=== PATIENT | female | born 1940 | race Caucasian/White ===

== ENCOUNTER 2017-05-26 00:01 | Inpatient (IN) ==
[2017-05-26 00:28] LABS: Basophils % 0.5 %; Eosinophils # 0.2 K/mcL (0.0-0.6); Hematocrit 23.3 % (35.3-44.9); Immature Granulocytes % 0.4 % (0-4); Lymphocytes # 2.2 K/mcL (0.6-4.6); Lymphocytes % 26.9 %; Mean Corpuscular Hemoglobin 31.2 pg (28.0-33.3); Mean Corpuscular Volume 94.3 fL (83.0-100.0); Mean Platelet Volume 11.3 fL (9.4-12.4); Monocytes # 0.7 K/mcL (0.0-1.3); Monocytes % 8.9 %; Nucleated Red Blood Cells 0.2 /100 WBC (0); Platelet Count 195 K/mcL (140-400); Red Blood Count 2.47 M/mcL (3.82-4.97); Red Cell Distribution Width 13.2 % (11.5-14.5); Segmented Neutrophils % 61.3 %
[2017-05-26 00:42] LABS: BUN/Creatinine Ratio 63 (6-26); Blood Urea Nitrogen 55 mg/dL (7-20); Calcium 8.3 mg/dL (8.6-10.8); Carbon Dioxide 22 mEq/L (19-29); Chloride 108 mEq/L (98-109); Glucose 109 mg/dL (70-99); Osmolality,Calculated 300 (280-300); Potassium 3.7 mEq/L (3.5-4.5); Sodium 137 mEq/L (136-145); eGFR For African Americans > 60 (> 60); eGFR For Non-African Americans > 60 (> 60)
[2017-05-26 00:44] LABS: Hemoglobin 7.7 g/dL (11.5-15.4)
--- NOTE | 2017-05-26 03:14 | Emergency Department Note ---
Disposition Clinical Impression: Anemia, Weakness, GI bleed Disposition: Admitted As Inpatient Condition: Fair Referrals: Shoshana Eisenberg CNP [Primary Care Provider] - Forms: ED Satisfaction Letter Time of Disposition: 06:13 General Adult HPI - General Chief complaint: ED Shortness of Breath/Dyspnea Stated complaint: SOB, "my blood pressure keeps dropping," Time Seen by Provider: 05/26/17 01:07 Source: patient, family Mode of arrival: private vehicle Limitations: no limitations Nursing Notes Reviewed: Yes Vital Signs Reviewed: Yes - History of Present Illness HPI Narrative: 77-year-old female patient presents to the emergency department with complaint of mild shortness of breath, generalized weakness and "my blood pressure has been low." Patient states that she was seen by her family doctor yesterday and was told to discontinue all of her blood pressure medications except for metoprolol. Patient states that over the course of the last 3 days she is felt generally fatigued, however states that she has not had any fever, chills, nausea or vomiting. She denies any chest pain. She has no additional complaints or concerns. Onset (ago): day(s) (3) Radiation: non-radiation Pain Scale: 0 Consistency: intermittent, Worsening Improves with: nothing Worsens with: nothing Associated symptoms: Reports: shortness of breath Treatments Prior to Arrival: none - Related Data Allergies Allergy/AdvReac Type Severity Reaction Status Date / Time Sulfa (Sulfonamide Allergy Itching Verified 02/19/17 15:46 Antibiotics) morphine AdvReac Vomiting Verified 02/19/17 15:46 All systems ED: reviewed and negative except as stated. Constitutional: Denies: fever, chills Cardiovascular: Denies: chest pain Respiratory: Reports: dyspnea Gastrointestinal: Denies: abdominal pain, nausea, vomiting, diarrhea, constipation, hematemesis, melena, hematochezia Genitourinary: Denies: urgency, dysuria, frequency Musculoskeletal: Denies: back pain, neck pain Integumentary: Denies: rash, abrasion, lesions Neurological: Reports: weakness. Denies: headache Psychiatric: Denies: anxiety, depression, suicidal thoughts, homicidal thoughts Endocrine: Reports: fatigue Past Medical History - Past Medical History Attestation: Yes The following information was validated with the patient. Source: patient, nursing notes reviewed Medical history: Reports: coronary artery disease, thyroid disease Psychiatric history: Reports: no psych history - Social History Smoking Status: Never smoker Smokeless Tobacco Status: No Alcohol use: Reports: none Drug use: Reports: none Physical Exam - General Limitations: no limitations General appearance: alert, in no apparent distress - Head Head exam: atraumatic, normocephalic, normal inspection - Eye Eye exam: Present: normal appearance, PERRL - Neck Neck exam: Present: normal inspection, full ROM, trachea midline - Chest Chest inspection: Present: normal inspection, symmetric chest wall rise - Respiratory Respiratory exam: Present: normal lung sounds bilaterally. Absent: respiratory distress - Cardiovascular Cardiovascular exam: Present: regular rate, normal rhythm, normal heart sounds - Abdominal Exam Abdominal exam: Present: soft, Non-Tender, normal bowel sounds. Absent: distention, guarding, rebound, rigidity - Extremities Exam Extremities exam: Present: normal inspection, full ROM. Absent: tenderness, pedal edema - Back Exam Back exam: Present: normal inspection, full ROM. Absent: tenderness - Neurological Exam Neurological exam: Present: alert, oriented X3 - Psychiatric Psychiatric exam: Present: normal affect, normal mood - Skin Skin exam: Present: warm, dry, intact, normal color Course - Consultations Consultation #1: I discussed the patient's presentation, labs and imaging studies with the hospitalist, he accepts the patient for admission and further workup. Patient resting comfortably in no acute distress. Vital signs within normal limits. Time: 06:13 Vital Signs Temperature 97.4 F L 05/26/17 00:09 Pulse Rate 67 05/26/17 00:09 Respiratory Rate 16 05/26/17 00:09 Blood Pressure 118/70 05/26/17 00:09 O2 Sat by Pulse Oximetry 100 05/26/17 00:09 Temperature 97.4 F L 05/26/17 00:09 Pulse Rate 57 05/26/17 03:00 Respiratory Rate 16 05/26/17 01:19 Blood Pressure 109/58 05/26/17 03:00 O2 Sat by Pulse Oximetry 100 05/26/17 01:19 Oxygen Delivery Oxygen Delivery Room Air Medical Decision Making - Lab Data Lab results reviewed: Yes I reviewed the patient's lab results. Result diagrams: 05/26/17 00:21 05/26/17 00:21 Lab Results 05/26/17 05/26/17 05/26/17 Range/Units 00:21 00:21 00:21 WBC 8.1 (4.3-11.1) K/mcL RBC 2.47 L (3.82-4.97) M/mcL Hgb 7.7 L (11.5-15.4) g/dL Hct 23.3 L (35.3-44.9) % MCV 94.3 (83.0-100.0) fL MCH 31.2 (28.0-33.3) pg MCHC 33.0 (31.6-35.5) g/dL RDW 13.2 (11.5-14.5) % Plt Count 195 (140-400) K/mcL MPV 11.3 (9.4-12.4) fL Immature Gran % 0.4 (0-4) % Seg Neutrophils % 61.3 % Lymphocytes % 26.9 % Monocytes % 8.9 % Eosinophils % 2.0 % Basophils % 0.5 % Neutrophils # 5.0 (1.6-8.9) K/mcL Lymphocytes # 2.2 (0.6-4.6) K/mcL Monocytes # 0.7 (0.0-1.3) K/mcL Eosinophils # 0.2 (0.0-0.6) K/mcL Basophils # 0.0 (0.0-0.2) K/mcL Nucleated RBCs/100 WBC 0.2 H (0) /100 WBC Sodium 137 (136-145) mEq/L Potassium 3.7 (3.5-4.5) mEq/L Chloride 108 (98-109) mEq/L Carbon Dioxide 22 (19-29) mEq/L BUN 55 H (7-20) mg/dL Creatinine 0.87 (0.57-1.11) mg/dL Est GFR ( Amer) > 60 (> 60) Est GFR (Non-Af Amer) > 60 (> 60) BUN/Creatinine Ratio 63 H (6-26) Glucose 109 H (70-99) mg/dL Calculated Osmolality 300 (280-300) Lactic Acid 0.8 (0.5-2.2) mmol/L Calcium 8.3 L (8.6-10.8) mg/dL Troponin I (0-0.03) ng/mL B-Natriuretic Peptide (0-100) pg/mL 05/26/17 05/26/17 Range/Units 00:21 00:21 WBC (4.3-11.1) K/mcL RBC (3.82-4.97) M/mcL Hgb (11.5-15.4) g/dL Hct (35.3-44.9) % MCV (83.0-100.0) fL MCH (28.0-33.3) pg MCHC (31.6-35.5) g/dL RDW (11.5-14.5) % Plt Count (140-400) K/mcL MPV (9.4-12.4) fL Immature Gran % (0-4) % Seg Neutrophils % % Lymphocytes % % Monocytes % % Eosinophils % % Basophils % % Neutrophils # (1.6-8.9) K/mcL Lymphocytes # (0.6-4.6) K/mcL Monocytes # (0.0-1.3) K/mcL Eosinophils # (0.0-0.6) K/mcL Basophils # (0.0-0.2) K/mcL Nucleated RBCs/100 WBC (0) /100 WBC Sodium (136-145) mEq/L Potassium (3.5-4.5) mEq/L Chloride (98-109) mEq/L Carbon Dioxide (19-29) mEq/L BUN (7-20) mg/dL Creatinine (0.57-1.11) mg/dL Est GFR ( Amer) (> 60) Est GFR (Non-Af Amer) (> 60) BUN/Creatinine Ratio (6-26) Glucose (70-99) mg/dL Calculated Osmolality (280-300) Lactic Acid (0.5-2.2) mmol/L Calcium (8.6-10.8) mg/dL Troponin I 0.00 (0-0.03) ng/mL B-Natriuretic Peptide 42 (0-100) pg/mL - Radiology Data Radiology results reviewed: Yes I reviewed the patient's radiology results.
--- NOTE | 2017-05-26 05:01 | Emergency Department Note ---
START Narrative - START START: For this encounter, I have reviewed the SOCIAL MEDIA CAMPAIGN MANAGER or PA documentation, treatment plan, and medical decision making; and I have had face to face time with this patient. 77yo F here for sob. anemia pt to be admitted.
[2017-05-26] MEDS ORDERED: Pantoprazole 40 MG VIAL IVP ONE (05:06)
[2017-05-26] MEDS: Pantoprazole 40 MG in 0.9 % Sodium Chloride Mini Bag 100 ML IVC SCH ×4 (05:38→23:00)
[2017-05-26] MEDS ORDERED: Naloxone 0.4 MG/ML INJ IVP PRN (05:59)
--- NOTE | 2017-05-26 06:10 | Internal Med History&Physical ---
Date of Encounter: 05/26/17 Time of Encounter: 06:07 Assessment and Plan (1) Melena Current visit: Yes Status: Acute on protonix per ED. Consult GI for eval. Clears for now until eval by GI in the a.m. Suspect subacute/slow bleed (2) Symptomatic anemia Current visit: Yes Status: Acute 1 pRBC, Check H&H q 12 (3) CAD (coronary artery disease) of artery bypass graft Current visit: Yes Status: Acute Hold DAPT for now. Stents were placed back in 2005 Qualifiers: Qualified Code(s): I25.810 - Atherosclerosis of coronary artery bypass graft( s) without angina pectoris (4) HTN (hypertension), benign Current visit: Yes Status: Acute hold BP med due to normotensive (5) Hypothyroid Current visit: Yes Status: Acute Qualifiers: Qualified Code(s): E03.9 - Hypothyroidism, unspecified Internal Medicine - H&P: HPI Chief complaint: weakness History of present illness: Ms. Shah is a 77 year old female who presents with 2 days hx of weakness, having headaches and dizziness, NIXON, worse with exertion suspicious for symptomatic anemia. Experienced symptoms between thursday and thursday. In the ED, she was found to have dark stools. She takes daily mobic, ASA and plavix On review, she has a hx of CAD s/p CABG 1993, stent 2005, EKG rate 66, non- specific T wave abnormality, T-wave flattening. 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 [employer] Past Med Surg Social Fam HX - Past Medical History Medical history: coronary artery disease, thyroid disease Psychiatric history: no psych history - Past Surgical History Surgical History: coronary bypass (CABG) - Social History Smoking Status: Never smoker Smokeless Tobacco Status: No Alcohol use: none Drug use: none - Additional Family History Additional family history: Hypertension Internal Medicine - H&P: Meds Allergies Sulfa (Sulfonamide Antibiotics) Allergy (Verified 02/19/17 15:46) Itching morphine Adverse Reaction (Verified 02/19/17 15:46) Vomiting All Systems PM: A 10-system review of systems was performed and is negative for pertinent findings except as documented above in the HPI. Review of systems: Inserted review of systems - Constitutional Vitals: Temp Pulse Resp BP Pulse Ox 97.4 F L 60 16 114/65 100 05/26/17 00:09 05/26/17 05:00 05/26/17 01:19 05/26/17 05:00 05/26/17 05:00 Exam: General - AAO x 3 Psych - Appropriate affect/speech. No agitation Eyes - TAMARA. Eye lids intact. No scleral icterus ENT - Oral mucosa pink, dentition intact. External ear clear/dry/intact. No thyromegaly Lymphatics - No cervical/inguinal lympadenopathy Neuro - No gross peripheral or central neuro deficits with intact CN 2-12 exam Heart - Sinus. RRR. S1 and S2 present. No added HS/murmurs appreciated. No elevated JVD appreciated. No calf swellings/erythema Lung - Adequate air entry b/l, No crackes/wheezes appreciated GI - Soft, non-tender. No hepatosplenomegaly/ascities. BS+ - No CVA/suprapubic tenderness or palpable bladder distension Skin - Intact. No rash/petechiae/ecchymosis. Warm extremities MSK - Joints with normal ROM. No joint swellings Internal Med - H&P Results - Labs CBC & Chem 7: 05/26/17 00:21 05/26/17 00:21 Labs: Short CBC 05/26/17 Range/Units 00:21 WBC 8.1 (4.3-11.1) K/mcL Hgb 7.7 L (11.5-15.4) g/dL Hct 23.3 L (35.3-44.9) % Plt Count 195 (140-400) K/mcL Neutrophils # 5.0 (1.6-8.9) K/mcL BMP 05/26/17 00:21 Sodium 137 Potassium 3.7 Chloride 108 Carbon Dioxide 22 BUN 55 H Creatinine 0.87 Glucose 109 H Calcium 8.3 L Cardiac Enzymes 05/26/17 Range/Units 00:21 Troponin I 0.00 (0-0.03) ng/mL - Impressions ITS Impressions Chest X-Ray 05/26/17 00:11 IMPRESSION: No acute cardiopulmonary process. D/ / Jaxson Pugh MD / Jaxsno Pugh MD Interpreting Provider: Jaxson Pugh MD
[2017-05-26 08:38] LABS: Hematocrit 22.3 % (35.3-44.9); Hemoglobin 7.4 g/dL (11.5-15.4)
--- NOTE | 2017-05-26 08:58 | Gastroenterology Consult Note ---
<Kennedi Cat - Last Filed: 05/26/17 11:29> Date of Encounter: 05/26/17 Time of Encounter: 10:20 - Assessment and plan (1) Melena Current Visit: Yes Status: Acute Assessment and plan: EGD to r/o esophagitis, gastritis, duodenitis, PUD, MW tear, varices, tumor, polyp, AVM. Continue PPI gtt. HOLD anticoagulation (2) Anemia Current Visit: Yes Status: Acute Qualifiers: Anemia type: other cause Other causes of anemia: acute posthemorrhagic Qualified Code(s): D62 - Acute posthemorrhagic anemia - Time Spent With Patient Total time spent is greater than 50% in coordination of care (as documented) at patient's floor/unit and/or counseling patient: less than 15 minutes GI History of Present Illness - Data of Consult Patient: new to practice Consult date: 05/26/17 Requesting Physician: Alirio Kitchen MD - Consult Narrative Reason for consult: melena, anemia History of present illness: Ms. Shah is a 77 year old female with PMH of CAD s/p CABG 1993, cardiac stent 2005 who presents with 2 days hx of weakness, having headaches and dizziness, NIXON, worse with exertion suspicious for symptomatic anemia. Experienced symptoms between thursday and thursday. In the ED, she was found to have dark stools. She takes daily mobic, ASA and plavix. Last Cscope [address] Lares revealed diverticulosis and internal hemorrhoids. Some increase in heartburn, admits dysphagia occasionally but due to pre-existing goiter. BM daily under normal circumstances. Colonoscopy: 2012 - VV - diverticulosis, IH EGD: None noted Past Med Surg Social Fam HX - Past Medical History Medical history: coronary artery disease, thyroid disease Psychiatric history: no psych history - Past Surgical History Surgical History: coronary bypass (CABG) - Social History Smoking Status: Never smoker Smokeless Tobacco Status: No Alcohol use: none Drug use: none - Gastrointestinal NSAID use: mobic, asa Anticoagulation Use: Plavix Number of BM Per Day: daily Gastrointestinal: Present: heartburn, melena - Constitutional Constitutional: fatigue - EENT Eyes: as per HPI Ears: Present: as per HPI Nose, mouth and throat: Present: dysphagia - Cardiovascular Cardiovascular ROS: Present: as per HPI - Respiratory Respiratory IM: Present: dyspnea - Neurological ROS Neurological GI: Present: weakness - Hematologic/Lymphatic Hematologic/Lymphatic pediatric: Present: as per HPI - Musculoskeletal Musculoskeletal ROS GI: Present: as per HPI - Integumentary Integumentary GI: Present: as per HPI - Psychiatric ROS Psychiatric GI: Present: as per HPI - Endocrine Endocrine IM: Present: as per HPI - Constitutional Vitals: Temp Pulse Resp BP Pulse Ox 97.4 F L 60 14 115/63 100 05/26/17 00:09 05/26/17 05:00 05/26/17 06:32 05/26/17 06:32 05/26/17 08:34 General appearance: Present: cooperative, A&O X 3, no acute distress, answers questions appropriately - Head Head exam: Present: atraumatic, normocephalic - Eye Eye exam: Present: normal appearance, sclera anicteric - ENT ENT exam: Present: mucous membranes moist - Neck Neck exam general surgery: Present: normal inspection, trachea midline - Respiratory Respiratory exam: Present: CTAB - Cardiovascular Cardiovascular exam: Present: RRR, +S1, +S2 - GI/Abdominal GI/Abdominal exam: Present: normal bowel sounds, soft, no peritoneal signs - Rectal Rectal exam: Present: deferred - Extremities Exam Extremities exam: Present: warm - Neurological Exam Neurological exam: Present: no focal deficits - Psychiatric Psychiatric exam: Present: normal affect, normal mood - Skin Skin exam: Present: dry, intact, normal color, warm Results - Labs CBC & Chem 7: 05/26/17 08:02 05/26/17 00:21 Labs: Last Result Calcium 8.3 mg/dL (8.6-10.8) L 05/26/17 00:21 Troponin I 0.00 ng/mL (0-0.03) 05/26/17 00:21 Stool Occult Blood Negative (Negative) 05/26/17 04:37 Entire Visit Hgb 7.4 g/dL (11.5-15.4) L 05/26/17 08:02 Hct 22.3 % (35.3-44.9) L 05/26/17 08:02 Consult Discharge Plan - Plan Referrals: Shoshana Eisenberg CNP [Primary Care Provider] - 06/04/17 1:00 pm () Frantz Diaz CNP [Advanced Practice Nurse] - (SENT WEB REQUEST ON 05-26-17 @ [id number]) <Eden Peña - Last Filed: 05/26/17 16:44> Date of Encounter: 05/26/17 Time of Encounter: 14:20 - Time Spent With Patient Total time spent is greater than 50% in coordination of care (as documented) at patient's floor/unit and/or counseling patient: GI History of Present Illness - Data of Consult Requesting Physician: Alirio Kitchen MD - Consult Narrative History of present illness: Ms. Shah is a 77 year old female - Constitutional Vitals: Temp Pulse Resp BP Pulse Ox 97.3 F L 62 15 127/83 99 05/26/17 15:28 05/26/17 15:28 05/26/17 15:28 05/26/17 15:28 05/26/17 15:28 Results - Labs CBC & Chem 7: 05/26/17 12:03 05/26/17 00:21 Labs: Last Result Calcium 8.3 mg/dL (8.6-10.8) L 05/26/17 00:21 Troponin I 0.00 ng/mL (0-0.03) 05/26/17 00:21 Stool Occult Blood Negative (Negative) 05/26/17 04:37 Entire Visit Hgb 6.8 g/dL (11.5-15.4) L 05/26/17 12:03 Hct 20.2 % (35.3-44.9) L 05/26/17 12:03 - Attending Attestation I examined this patient and my medical decision-making was reviewed with the Resident Physician. I agree with the documented findings, disposition and treatment plan as described except to the extent set forth below.
[2017-05-26] MEDS ORDERED: 0.9 % Sodium Chloride 250 ML ONE (10:58)
[2017-05-26 12:22] LABS: Hematocrit 20.2 % (35.3-44.9); Hemoglobin 6.8 g/dL (11.5-15.4)
--- NOTE | 2017-05-26 13:46 | Anesthesia Evaluation PreOp ---
Date of Encounter: 05/26/17 Time of Encounter: 13:43 - Past History Planned Operation: EGD Cardiac History: HTN, Cardiac Surgery (1993), Cardiac Stent (2005), Other ( Anemia) Pulmonary History: Denies Any Significant HX POWER TRANSFORMER ASSEMBLER History: Denies Any Significant HX Other Medical History: Thyroid (Hypothyroid with goiter) Anesthesia History: No Prior Anesthetic Complications, Past Anesthesia (CABG, NICO, APPY, L. knee scope, tublal, D&C) : No Alcohol Use: none Drug use: none Medications and Allergies Alendronate Sodium [Fosamax] 70 mg PO QWEEK 05/26/17 [History] Amlodipine Besylate 10 mg PO DAILY 05/26/17 [History] Atorvastatin [Lipitor] 40 mg PO HS 05/26/17 [History] Calcium Carbonate [Calcium] 500 mg PO BID 05/26/17 [History] Clopidogrel [Plavix] 75 mg PO DAILY 05/26/17 [History] Isosorbide MONOnitrate (24 HR) [Imdur] 90 mg PO DAILY 05/26/17 [History] Levothyroxine [Synthroid] 88 mcg PO 0630 05/26/17 [History] Lisinopril [Zestril] 40 mg PO DAILY 05/26/17 [History] Meloxicam [Mobic] 15 mg PO DAILY 05/26/17 [History] Metoprolol [Lopressor] 50 mg PO BID 05/26/17 [History] Montelukast [Singulair] 10 mg PO DAILY 05/26/17 [History] Nitroglycerin [Nitrostat] 0.4 mg SL AD PRN 05/26/17 [History] Potassium Chloride [K-Tab ER] 24 meq PO BID 05/26/17 [History] Ranolazine [Ranexa] 1,000 mg PO DAILY 05/26/17 [History] hydroCHLOROthiazide [Hydrochlorothiazide] 25 mg PO DAILY 05/26/17 [History] Allergies Sulfa (Sulfonamide Antibiotics) Allergy (Verified 02/19/17 15:46) Itching morphine Adverse Reaction (Verified 02/19/17 15:46) Vomiting - Meds/Allergy Pre-op Review Medications Reviewed: Yes Allergies Reviewed: Yes Beta Blockers on Current Med List: No Anesthesia Results - Labs 05/26/17 12:03 05/26/17 00:21 - Imaging EKG: report reviewed (Rate 66, non-specific T wave changes, T-wave flattening) Anesthesia Exam O2 Sat Height 1.57 m Weight 47.9 kg Weight 47.174 kg O2 Sat by Pulse Oximetry 100 O2 Sat by Pulse Oximetry 100 O2 Sat by Pulse Oximetry 98 O2 Sat by Pulse Oximetry 100 O2 Sat by Pulse Oximetry 100 O2 Sat by Pulse Oximetry 100 O2 Sat by Pulse Oximetry 100 O2 Sat by Pulse Oximetry 100 Vital Signs Temp Pulse Resp BP Pulse Ox 97.4 F L 67 16 118/70 100 05/26/17 00:09 05/26/17 00:09 05/26/17 00:09 05/26/17 00:09 05/26/17 00:09 Vital Signs/O2 Sat, Most Current Temp Pulse Resp BP Pulse Ox 98.2 F 60 16 121/62 100 05/26/17 10:55 05/26/17 10:55 05/26/17 10:55 05/26/17 10:55 05/26/17 10:55 Height: 5'2'' Weight: 105# NPO (# of Hours): > 8 hrs Pain Scale: 0 Pain Scale Used: Numeric (1 - 10) - HEENT Pupil (Motor): Pupils equal, EOMI Mallampati: III Teeth: Normal Oral Opening: Greater than 3 - POWER TRANSFORMER ASSEMBLER LOC: Oriented POWER TRANSFORMER ASSEMBLER Motor: Normal RUE, Normal LUE, Normal RLE, Normal LLE, Normal Face POWER TRANSFORMER ASSEMBLER Sensory: Normal: RUE, LUE, RLE, LLE, Face - Cardiac Rhythm: Regular Murmur: None JVD: No Carotid Bruit: No - Pulmonary Breath Sounds: bilateral Clear Respiratory Effort: Symmetrical Anesthesia Assess/Plan ASA Score: 3 Modified [place] Scale for Level of Consciousness: Cooperative, oriented, and tranquil Anesthetic Plan: MAC Autologous Blood: Yes Monitoring Plan: Standard Monitors Recovery Plan: Other
[2017-05-26] MEDS ORDERED: Tetracaine/Benzocaine/Butamben 200MG/SPRAY (100SPY/BOT) MM ONE (14:31)
--- NOTE | 2017-05-26 16:38 | Electrocardiograph Report ---
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
[2017-05-26] MEDS ORDERED: 0.9 % Sodium Chloride 1,000 ML ONE (18:00)
--- NOTE | 2017-05-26 18:01 | Internal Med Progress Note ---
Date of Encounter: 05/26/17 Time of Encounter: 10:00 - Assessment and plan (1) GI bleed Current Visit: Yes Status: Acute Assessment and plan: mostly upper GI bleed with melena cont close monitoring Hb / Hct NPO for now scheduled for EGD in AM by Dr. Peña cont PPI gtt d/c ASA, Plavix and NSAIDs Qualifiers: Qualified Code(s): K92.2 - Gastrointestinal hemorrhage, unspecified (2) Symptomatic anemia Current Visit: Yes Status: Acute Assessment and plan: Since hb dropped down to 6.8.. with known cardiac history will transfuse 2 U PRBC will check Iron levels too cont close monitoring Hb (3) CAD (coronary artery disease) of artery bypass graft Current Visit: Yes Status: Acute Assessment and plan: stable hald ASA and Plavix resumed other meds Qualifiers: Qualified Code(s): I25.810 - Atherosclerosis of coronary artery bypass graft( s) without angina pectoris (4) HTN (hypertension), benign Current Visit: Yes Status: Acute Assessment and plan: stable with current meds (5) Hypothyroid Current Visit: Yes Status: Acute Assessment and plan: on levothyroxine Qualifiers: Qualified Code(s): E03.9 - Hypothyroidism, unspecified - Subjective Interval history: Ms. Shah is a 77 year old female who presents with 2 days hx of weakness, having headaches and dizziness, NIXON, worse with exertion suspicious for symptomatic anemia. Experienced symptoms between thursday and thursday. In the ED, she was found to have dark stools. She takes daily mobic, ASA and plavix. Pt stated she did not have any more dark colored stools after coming to the floor here. Denied any CP / SOB - Constitutional Vitals: Temp Pulse Resp BP Pulse Ox 99.1 F 63 14 133/86 100 05/26/17 17:17 05/26/17 17:17 05/26/17 17:17 05/26/17 17:17 05/26/17 17:17 General appearance: Present: A&O X 3, no acute distress - Head Head exam: Present: atraumatic, normal inspection - Neck Neck exam general surgery: Present: supple. Absent: lymphadenopathy - Respiratory Respiratory exam: Present: CTAB. Absent: accessory muscle use, rales, rhonchi, wheezes - Cardiovascular Cardiovascular exam: Present: RRR, +S1, +S2. Absent: diastolic murmur, gallop, rubs, systolic murmur - GI/Abdominal GI/Abdominal exam: Present: normal bowel sounds, soft, no peritoneal signs. Absent: distended, tenderness - Extremities Exam Extremities exam: Absent: calf tenderness, pedal edema, tenderness - Psychiatric Psychiatric exam: Present: normal affect, normal mood Internal Medicine: Result - Labs CBC & Chem 7: 05/26/17 12:03 05/26/17 00:21 Labs: Short CBC 05/26/17 Range/Units 12:03 Hgb 6.8 L (11.5-15.4) g/dL Hct 20.2 L (35.3-44.9) % Consult Discharge Plan - Plan Referrals: Shoshana Eisenberg CNP [Primary Care Provider] - 06/04/17 1:00 pm () Frantz Diaz CNP [Advanced Practice Nurse] - (SENT WEB REQUEST ON 05-26-17 @ [id number])
[2017-05-26] MEDS: 0.9 % Sodium Chloride 1,000 ML IVC SCH (18:07)
[2017-05-26 18:08] LABS: Hemoglobin 9.1 g/dL (11.5-15.4)
[2017-05-27] MEDS: Pantoprazole 40 MG in 0.9 % Sodium Chloride Mini Bag 100 ML IVC SCH ×2 (04:36→09:20)
[2017-05-27] MEDS: 0.9 % Sodium Chloride 1,000 ML IVC SCH (04:37)
[2017-05-27 05:29] LABS: Basophils % 0.2 %; Eosinophils # 0.3 K/mcL (0.0-0.6); Hemoglobin 7.7 g/dL (11.5-15.4); Immature Granulocytes % 0.2 % (0-4); Lymphocytes # 1.5 K/mcL (0.6-4.6); Lymphocytes % 17.5 %; Mean Corpuscular HGB Conc 33.5 g/dL (31.6-35.5); Mean Corpuscular Hemoglobin 30.7 pg (28.0-33.3); Mean Corpuscular Volume 91.6 fL (83.0-100.0); Monocytes # 0.7 K/mcL (0.0-1.3); Monocytes % 8.1 %; Neutrophils # 6.2 K/mcL (1.6-8.9); Platelet Count 116 K/mcL (140-400); Red Blood Count 2.51 M/mcL (3.82-4.97)
[2017-05-27 05:47] LABS: % Iron Saturation 11 % (15-50); BUN/Creatinine Ratio 26 (6-26); Blood Urea Nitrogen 18 mg/dL (7-20); Calcium 7.6 mg/dL (8.6-10.8); Carbon Dioxide 20 mEq/L (19-29); Chloride 111 mEq/L (98-109); Glucose 92 mg/dL (70-99); Iron 36 mcg/dL (50-170); Osmolality,Calculated 288 (280-300); Potassium 3.5 mEq/L (3.5-4.5); Sodium 138 mEq/L (136-145); Transferrin 240 mg/dL (180-382); eGFR For African Americans > 60 (> 60); eGFR For Non-African Americans > 60 (> 60)
[2017-05-27] MEDS ORDERED: Sucralfate 1 GM TABLET PO SCH (12:15)
[2017-05-27 13:20] LABS: Hematocrit 25.2 % (35.3-44.9); Hemoglobin 8.3 g/dL (11.5-15.4)
[2017-05-27 16:32] VITALS: BP 144/67
--- NOTE | 2017-05-27 16:32 | Discharge Summary ---
Date of Encounter: 05/27/17 Time of Encounter: 12:30 - Discharge Diagnosis (1) GI bleed Priority: Primary Status: Acute Comments: Improved. s/p EGD showed - non bleeding gastric ulcers Qualifiers: Qualified Code(s): K92.2 - Gastrointestinal hemorrhage, unspecified (2) Symptomatic anemia Priority: Primary Status: Acute (3) Gastric ulcer Priority: Secondary Status: Acute Qualifiers: Qualified Code(s): K25.9 - Gastric ulcer, unspecified as acute or chronic, without hemorrhage or perforation (4) CAD (coronary artery disease) of artery bypass graft Priority: Secondary Status: Acute Qualifiers: Qualified Code(s): I25.810 - Atherosclerosis of coronary artery bypass graft( s) without angina pectoris (5) HTN (hypertension), benign Priority: Secondary Status: Acute (6) Hypothyroid Priority: Secondary Status: Acute Qualifiers: Qualified Code(s): E03.9 - Hypothyroidism, unspecified - Discharge Medications Prescriptions: Omeprazole [PriLOSEC] 20 mg PO BIDAC #60 Sucralfate [Carafate] 1 gm PO QIDAC #120 tab Home Medications: Alendronate Sodium [Fosamax] 70 mg PO QWEEK 05/26/17 [History] Amlodipine Besylate 10 mg PO DAILY 05/26/17 [History] Atorvastatin [Lipitor] 40 mg PO HS 05/26/17 [History] Calcium Carbonate [Calcium] 500 mg PO BID 05/26/17 [History] Isosorbide MONOnitrate (24 HR) [Imdur] 90 mg PO DAILY 05/26/17 [History] Levothyroxine [Synthroid] 88 mcg PO 0630 05/26/17 [History] Lisinopril [Zestril] 40 mg PO DAILY 05/26/17 [History] Metoprolol [Lopressor] 50 mg PO BID 05/26/17 [History] Montelukast [Singulair] 10 mg PO DAILY 05/26/17 [History] Nitroglycerin [Nitrostat] 0.4 mg SL AD PRN 05/26/17 [History] Potassium Chloride [K-Tab ER] 24 meq PO BID 05/26/17 [History] Ranolazine [Ranexa] 1,000 mg PO DAILY 05/26/17 [History] hydroCHLOROthiazide [Hydrochlorothiazide] 25 mg PO DAILY 05/26/17 [History] Omeprazole [PriLOSEC] 20 mg PO BIDAC #60 05/27/17 [Rx] Sucralfate [Carafate] 1 gm PO QIDAC #120 tab 05/27/17 [Rx] Aspirin Enteric Coated [Aspirin EC] 81 mg PO DAILY #30 tablet. 06/01/17 [Rx] Allergies/Adverse Reactions: Allergies Sulfa (Sulfonamide Antibiotics) Allergy (Verified 02/19/17 15:46) Itching morphine Adverse Reaction (Verified 02/19/17 15:46) Vomiting Date of admission: 05/26/17 08:21 Primary care physician: Shoshana Eisenberg, Consults: GI Dr. Peña - Patient Status Disposition: Home, Self-Care Condition: Good Overall status at discharge: patient is back to baseline - Discharge Instructions Follow Up With: Shoshana Eisenberg, BETY [Primary Care Provider] - 06/04/17 1:00 pm () Frantz Diaz, GRID MOLDER [Advanced Practice Nurse] - (SENT WEB REQUEST ON 05-26-17 @ [id number]) Additional Instructions: need to f/u with GI Dr. Peña in 1-2 weeks start taking ASA 81mg from 06/01/17 Do not take Plavix until you see your appeals officer -may be you may not need this anymore discontinue Mobic - Diet and Activity Activity: increase activity as tolerated Diet: advance to your usual diet Hospital course: Ms. Shah is a 77 year old female who presents with 2 days hx of weakness, having headaches and dizziness, [place], worse with exertion suspicious for symptomatic anemia. Experienced symptoms between thursday and thursday. In the ED, she was found to have dark stools. She takes daily Mobic, ASA and plavix. Pt stated she did not have any more dark colored stools after coming to the floor here. Started her on Protonix gtt and held her anti platelets medications and Mobic. She did go for EGD y/d by Dr. Peña which showed a small nodule in the Esophagus - Biopsied and 2 small non bleeding gastric ulcers. At this point we switched her to PO Prilosec 20mg BID + Carafate 1gm ACHS. Recommend to keep holding Plavix until she sees her appeals officer, but she can take ASA in 5 days from now. - Time Spent with Patient Total time spent providing and/or coordinating discharge services: - Constitutional Vitals: Temp Pulse Resp BP Pulse Ox 98.6 F 89 16 124/54 99 05/27/17 10:26 05/27/17 13:00 05/27/17 10:26 05/27/17 10:26 05/27/17 10:26 General appearance: Present: A&O X 3, no acute distress - Head Head exam: Present: atraumatic, normal inspection - Neck Neck exam general surgery: Present: supple. Absent: tenderness - Respiratory Respiratory exam: Present: decreased breath sounds. Absent: respiratory distress, rhonchi, wheezes - Cardiovascular Cardiovascular exam: Present: RRR, +S1, +S2. Absent: systolic murmur - GI/Abdominal GI/Abdominal exam: Present: normal bowel sounds, soft, no peritoneal signs. Absent: distended, tenderness - Extremities Exam Extremities exam: Absent: calf tenderness, pedal edema, tenderness
[2017-05-27] MEDS ORDERED: *HR* Propofol 200 MG/20 ML VIAL IVP ONE (17:28)
== END 2017-05-27 17:29 | disposition home or self-care (01) | DRG 378 ==
LOC: 2NNU 00:01 → EMEROO 00:01 → 2NNU 07:34
PROVIDERS: ADMIT Internal Medicine; ATTEND Internal Medicine
PROC: ENDOEBX (2017-05-26 14:00)

== ENCOUNTER 2021-11-05 16:27 | Inpatient (IN) ==
[~2021-11-05 16:27] MED LIST: cefTRIAXone 1,000 MG in 0.9 % Sodium Chloride Mini Bag 100 ML IVPB SCH
[2021-11-05] MEDS ORDERED: 0.9 % Sodium Chloride 1,000 ML IVC ONE (18:48)
[2021-11-05 19:23] LABS: Basophils % 0.2 %; Eosinophils # 0.3 K/mcL (0.0-0.6); Eosinophils % 1.3 %; Hematocrit 41.3 % (35.3-44.9); Hemoglobin 13.2 g/dL (11.5-15.4); Immature Granulocytes % 0.9 % (0-4); Lymphocytes # 0.4 K/mcL (0.6-4.6); Lymphocytes % 2.3 %; Mean Corpuscular Hemoglobin 29.3 pg (28.0-33.3); Mean Corpuscular Volume 91.6 fL (83.0-100.0); Mean Platelet Volume 10.6 fL (9.4-12.4); Monocytes % 5.2 %; Neutrophils # 16.7 K/mcL (1.6-8.9); Platelet Count 180 K/mcL (140-400); Red Blood Count 4.51 M/mcL (3.82-4.97); Red Cell Distribution Width 14.6 % (11.5-14.5); Segmented Neutrophils % 90.1 %; White Blood Count 18.6 K/mcL (4.3-11.1)
[2021-11-05 19:39] LABS: Alanine Aminotransferase 12 Units/L (7-52); Albumin 2.6 g/dL (3.5-5.7); Albumin/Globulin Ratio 0.7 (1.1-2.2); Alkaline Phosphatase 143 Units/L (34-104); Aspartate Amino Transferase 14 Units/L (13-39); BUN/Creatinine Ratio 30 (6-26); Bilirubin,Total 2.1 mg/dL (0.3-1.0); Blood Urea Nitrogen 28 mg/dL (8-23); Calcium 8.3 mg/dL (8.6-10.3); Carbon Dioxide 31 mEq/L (23-29); Chloride 95 mEq/L (98-107); Creatine Kinase 108 Units/L (30-223); Globulin 3.9 g/dL (2.4-3.5); Glucose 179 mg/dL (70-105); Magnesium 1.4 mg/dL (1.6-2.6); Osmolality,Calculated 296 (280-300); Potassium 2.6 mEq/L (3.5-5.1); Sodium 138 mEq/L (136-145); Total Protein 6.5 g/dL (6.4-8.9); eGFR For African Americans > 60 (> 60); eGFR For Non-African Americans 58 (> 60)
[2021-11-05 19:44] LABS: Troponin I 0.26 ng/mL (< 0.04)
[2021-11-05] MEDS ORDERED: levoFLOXacin 750 MG/150 ML 750 MG/150 ML BAG IVPB ONE (20:06)
[2021-11-05 20:12] LABS: Bilirubin,Urine Small (Negative); Blood,Urine Negative (Negative); Clarity,Urine Turbid (Clear); Color,Urine Dark-Yellow (Yellow); Glucose,Urine (UA) Normal (Normal); Hyaline Casts,Urine Few per lpf (None Seen); Ketones,Urine Trace mg/dL (Negative); Leukocyte Esterase,Urine Negative (Negative); Mucus,Urine Many per lpf (None-Few); Nitrite,Urine Negative (Negative); PH,Urine 5.5 pH Units (5.0-8.0); Protein,Urine 50 mg/dL (Neg-Trace); Specific Gravity,Urine 1.029 (1.010-1.025); Squamous Epithelial Cell,Urine Few per hpf (None-Few); Urobilinogen,Urine >=8.0 mg/dL (Normal)
[2021-11-05] MEDS ORDERED: *HR* Heparin 5,000 UNIT/ML VIAL IVP ONE (20:26)
[2021-11-05] MEDS ORDERED: *HR* Heparin 5,000 UNIT/ML VIAL IVP PRN ×2 (20:26)
[2021-11-05] MEDS ORDERED: Naloxone 0.4 MG/ML INJ IVP PRN (20:34)
[2021-11-05] MEDS ORDERED: Ondansetron 4 MG/2 ML VIAL IVP PRN (20:34)
[2021-11-05] MEDS ORDERED: 0.9 % Sodium Chloride 1,000 ML IVC SCH (21:00)
[2021-11-05] MEDS ORDERED: Nitroglycerin 0.4 MG TAB.SUBL SL PRN (21:23)
[2021-11-05] MEDS ORDERED: Magnesium Sulfate 1 GM/102 ML PIGGYBACK IVPB ONE (21:36)
[2021-11-05] MEDS: Heparin 25,000UNIT/250ML 1/2NS 25,000 UNIT/250 ML IV.SOLN IVC SCH (21:56)
[2021-11-05 23:35] LABS: Hematocrit 37.8 % (35.3-44.9); Hemoglobin 12.3 g/dL (11.5-15.4); Mean Corpuscular HGB Conc 32.5 g/dL (31.6-35.5); Mean Corpuscular Volume 92.2 fL (83.0-100.0); Mean Platelet Volume 10.8 fL (9.4-12.4); Platelet Count 119 K/mcL (140-400); Red Cell Distribution Width 14.6 % (11.5-14.5); White Blood Count 14.4 K/mcL (4.3-11.1)
[2021-11-05 23:45] LABS: Heparin anti-factor XA UFH 0.6 IU/mL (0.30-0.70)
[2021-11-05 23:46] LABS: INR 1.5; Prothrombin Time 16.5 Seconds (9.4-12.1)
[2021-11-06] MEDS: Acetaminophen 325 MG TABLET PO PRN (00:01)
[2021-11-06 01:53] LABS: Adenovirus Not Detected (Not Detect); Bordetella Pertussis Not Detected (Not Detect); Chlamydophila pneumoniae Not Detected (Not Detect); Coronavirus 229E Not Detected (Not Detect); Coronavirus HKU1 Not Detected (Not Detect); Coronavirus NL63 Not Detected (Not Detect); Coronavirus OC43 Not Detected (Not Detect); Human Metapneumovirus Not Detected (Not Detect); Human Rhinovirus/Enterovirus Not Detected (Not Detect); Influenza A Subtype 2009 H1 Not Detected (Not Detect); Influenza B Not Detected (Not Detect); Mycoplasma pneumoniae Not Detected (Not Detect); Parainfluenza Virus 1 Not Detected (Not Detect); Parainfluenza Virus 2 Not Detected (Not Detect); Parainfluenza Virus 3 Not Detected (Not Detect); Parainfluenza Virus 4 Not Detected (Not Detect); Respiratory Syncytial Virus Not Detected (Not Detect); SARS-CoV-2 Not Detected (Not Detect)
[2021-11-06 05:21] LABS: Hematocrit 33.8 % (35.3-44.9); Mean Corpuscular HGB Conc 32.5 g/dL (31.6-35.5); Mean Corpuscular Hemoglobin 30.2 pg (28.0-33.3); Mean Corpuscular Volume 92.9 fL (83.0-100.0); Mean Platelet Volume 10.7 fL (9.4-12.4); Platelet Count 117 K/mcL (140-400); Red Blood Count 3.64 M/mcL (3.82-4.97); Red Cell Distribution Width 14.5 % (11.5-14.5)
[2021-11-06 05:40] LABS: Potassium 3.5 mEq/L (3.5-5.1)
[2021-11-06 05:41] LABS: BUN/Creatinine Ratio 38 (6-26); Blood Urea Nitrogen 26 mg/dL (8-23); Calcium 7.2 mg/dL (8.6-10.3); Carbon Dioxide 28 mEq/L (23-29); Chloride 102 mEq/L (98-107); Glucose 83 mg/dL (70-105); Osmolality,Calculated 288 (280-300); Sodium 137 mEq/L (136-145); eGFR For African Americans > 60 (> 60); eGFR For Non-African Americans > 60 (> 60)
[2021-11-06] MEDS ORDERED: Dextrose Gel 15 GM/37.5 ML TUBE PO PRN ×2 (07:53)
[2021-11-06] MEDS ORDERED: D5% in Water 1,000 ML IVC PRN (07:53)
[2021-11-06] MEDS ORDERED: cefTRIAXone 1,000 MG in 0.9 % Sodium Chloride Mini Bag 100 ML IVPB SCH (09:00)
[2021-11-06] MEDS ORDERED: Azithromycin 500 MG in 0.9 % Sodium Chloride 250 ML IVPB SCH (09:00)
[2021-11-06] MEDS ORDERED: Perflutren Lipid Microsphere 1.3 ML in 0.9 % Sodium Chloride 8.7 ML IVP PRN (09:01)
[2021-11-06] MEDS ORDERED: Isovue-370 500 ML BOTTLE IVP ONE (11:00)
[2021-11-06] MEDS: Insulin LISPRO 300 UNITS/3 ML VIAL SUBQ SCH ×2 (12:18→19:47)
[2021-11-06] MEDS: *HR* Dextrose 50 % in Water (Syg) 50 ML SYRINGE IVP PRN (14:10)
[2021-11-06] MEDS ORDERED: 0.9 % Sodium Chloride 1,000 ML IVC SCH (14:30)
[2021-11-06 14:50] LABS: Triiodothyronine (T3) Total 18 ng/dL (87-178)
[2021-11-07] MEDS: Insulin LISPRO 300 UNITS/3 ML VIAL SUBQ SCH ×4 (02:54→17:56)
[2021-11-07 03:20] LABS: Basophils % 0.2 %; Eosinophils # 0.7 K/mcL (0.0-0.6); Eosinophils % 4.3 %; Hematocrit 37.5 % (35.3-44.9); Hemoglobin 11.9 g/dL (11.5-15.4); Lymphocytes # 0.4 K/mcL (0.6-4.6); Lymphocytes % 2.6 %; Mean Corpuscular HGB Conc 31.7 g/dL (31.6-35.5); Mean Corpuscular Hemoglobin 30.4 pg (28.0-33.3); Mean Corpuscular Volume 95.7 fL (83.0-100.0); Mean Platelet Volume 11.1 fL (9.4-12.4); Monocytes # 0.7 K/mcL (0.0-1.3); Monocytes % 4.5 %; Neutrophils # 14.4 K/mcL (1.6-8.9); Platelet Count 149 K/mcL (140-400); Red Blood Count 3.92 M/mcL (3.82-4.97); Red Cell Distribution Width 15.1 % (11.5-14.5); Segmented Neutrophils % 87.4 %; White Blood Count 16.4 K/mcL (4.3-11.1)
[2021-11-07 03:38] LABS: BUN/Creatinine Ratio 26 (6-26); Blood Urea Nitrogen 22 mg/dL (8-23); Calcium 7.3 mg/dL (8.6-10.3); Carbon Dioxide 24 mEq/L (23-29); Chloride 106 mEq/L (98-107); Glucose 88 mg/dL (70-105); Magnesium 1.4 mg/dL (1.6-2.6); Osmolality,Calculated 289 (280-300); Phosphorous 2.1 mg/dL (2.7-4.5); Potassium 3.4 mEq/L (3.5-5.1); Sodium 138 mEq/L (136-145); eGFR For African Americans > 60 (> 60); eGFR For Non-African Americans > 60 (> 60)
[2021-11-07] MEDS ORDERED: Potassium Phosphate 44 MEQ in 0.9 % Sodium Chloride 250 ML IVPB ONE (07:21)
[2021-11-07] MEDS: Aspirin Enteric Coated 81 MG Tablet PO SCH (07:59)
[2021-11-07] MEDS: levoFLOXacin 750 MG TABLET PO SCH (07:59)
[2021-11-07] MEDS: Ranolazine 500 MG TAB.ER.12H PO SCH (07:59)
[2021-11-07] MEDS: Heparin 25,000UNIT/250ML 1/2NS 25,000 UNIT/250 ML IV.SOLN IVC SCH ×2 (08:06→22:35)
[2021-11-07] MEDS ORDERED: Water for inj. (sterile) 10 ML ONE (14:12)
[2021-11-07] MEDS: Thiamine (B-1) 100 MG TABLET PO SCH (20:55)
[2021-11-08] MEDS: Insulin LISPRO 300 UNITS/3 ML VIAL SUBQ SCH ×4 (00:52→16:52)
[2021-11-08] MEDS: Ranolazine 500 MG TAB.ER.12H PO SCH (09:01)
[2021-11-08] MEDS: Isosorbide MONOnitrate (24 HR) 30 MG TAB.ER.24H PO SCH (09:01)
[2021-11-08] MEDS: Aspirin Enteric Coated 81 MG Tablet PO SCH (09:02)
[2021-11-08] MEDS: Thiamine (B-1) 100 MG TABLET PO SCH (09:02)
[2021-11-08] MEDS: Cyanocobalamin (B-12) 1,000 MCG TABLET PO SCH (09:06)
[2021-11-08 13:45] LABS: Red Blood Cell,CSF < 2000 RBC/mcL
[2021-11-08 13:52] LABS: Appearance,CSF Clear (Clear)
[2021-11-08 15:05] LABS: Glucose,CSF 33 mg/dL (40-70); Total Protein,CSF 71 mg/dL (15-45)
[2021-11-08 15:11] LABS: Basophils,CSF 0 %; Eosinophils,CSF 0 %; Lymphocytes,CSF 0 %; Monocytes,CSF 0 %; Other Cells,CSF 0 %
[2021-11-08] MEDS ORDERED: Gadolinium Contrast Agent (WT Based) IV PRN (16:41)
[2021-11-09] MEDS: Insulin LISPRO 300 UNITS/3 ML VIAL SUBQ SCH ×4 (00:23→17:19)
[2021-11-09 02:36] LABS: Basophils % 0.2 %; Immature Granulocytes % 0.8 % (0-4); Mean Corpuscular Volume 101.1 fL (83.0-100.0); Red Cell Distribution Width 15.7 % (11.5-14.5)
[2021-11-09 02:38] LABS: Eosinophils # 0.5 K/mcL (0.0-0.6); Eosinophils % 3.9 %; Hematocrit 36.6 % (35.3-44.9); Hemoglobin 10.9 g/dL (11.5-15.4); Immature Platelets 5.5 % (1.1-6.1); Lymphocytes # 0.5 K/mcL (0.6-4.6); Lymphocytes % 3.6 %; Mean Corpuscular HGB Conc 29.8 g/dL (31.6-35.5); Mean Corpuscular Hemoglobin 30.1 pg (28.0-33.3); Mean Platelet Volume 11.5 fL (9.4-12.4); Monocytes # 0.7 K/mcL (0.0-1.3); Monocytes % 5.7 %; Neutrophils # 10.9 K/mcL (1.6-8.9); Red Blood Count 3.62 M/mcL (3.82-4.97); Segmented Neutrophils % 85.8 %; White Blood Count 12.7 K/mcL (4.3-11.1)
[2021-11-09 02:51] LABS: BUN/Creatinine Ratio 32 (6-26); Blood Urea Nitrogen 31 mg/dL (8-23); Calcium 7.5 mg/dL (8.6-10.3); Carbon Dioxide 23 mEq/L (23-29); Chloride 108 mEq/L (98-107); Glucose 69 mg/dL (70-105); Osmolality,Calculated 283 (280-300); Potassium 5.2 mEq/L (3.5-5.1); Sodium 134 mEq/L (136-145); eGFR For African Americans > 60 (> 60); eGFR For Non-African Americans 55 (> 60)
[2021-11-09 03:27] LABS: Platelet Count 99 K/mcL (140-400)
[2021-11-09] MEDS: Thiamine (B-1) 100 MG TABLET PO SCH (08:51)
[2021-11-09] MEDS: Isosorbide MONOnitrate (24 HR) 30 MG TAB.ER.24H PO SCH (08:51)
[2021-11-09] MEDS: levoFLOXacin 750 MG TABLET PO SCH (08:51)
[2021-11-09] MEDS: Ranolazine 500 MG TAB.ER.12H PO SCH (08:51)
[2021-11-09] MEDS: Aspirin Enteric Coated 81 MG Tablet PO SCH (08:51)
[2021-11-09] MEDS: Cyanocobalamin (B-12) 1,000 MCG TABLET PO SCH (08:51)
[2021-11-09] MEDS ORDERED: SODIUM ZIRCONIUM CYCLOSILICATE 5 GM POWD.PACK PO ONE (09:02)
[2021-11-09] MEDS: *HR* Dextrose 50 % in Water (Syg) 50 ML SYRINGE IVP PRN (11:00)
[2021-11-09] MEDS: methylPREDNISolone 125 MG/2 ML VIAL IVP SCH ×2 (12:10→17:19)
[2021-11-09] MEDS ORDERED: *HR* Labetalol 20 MG/4 ML SYRINGE IVP ONE (19:55)
[2021-11-09] MEDS ORDERED: Calcium Gluconate 1gm/50mL 1 GM/50 ML BAG IVPB PRN (19:59)
[2021-11-09] MEDS ORDERED: Calcium Gluconate 1gm/50mL 1 GM/50 ML BAG IVPB SCH (20:30)
[2021-11-10] MEDS: methylPREDNISolone 125 MG/2 ML VIAL IVP SCH ×4 (00:37→18:32)
[2021-11-10] MEDS: Insulin LISPRO 300 UNITS/3 ML VIAL SUBQ SCH ×4 (00:44→18:37)
[2021-11-10] MEDS: Cyanocobalamin (B-12) 1,000 MCG TABLET PO SCH (07:54)
[2021-11-10] MEDS: Thiamine (B-1) 100 MG TABLET PO SCH (07:54)
[2021-11-10] MEDS: Ranolazine 500 MG TAB.ER.12H PO SCH (07:54)
[2021-11-10] MEDS: Isosorbide MONOnitrate (24 HR) 30 MG TAB.ER.24H PO SCH (08:08)
[2021-11-10] MEDS: Aspirin Enteric Coated 81 MG Tablet PO SCH (08:08)
[2021-11-10] MEDS ORDERED: Cyanocobalamin (B-12) 1,000 MCG/ML VIAL IM ONE (10:14)
[2021-11-10 11:51] LABS: Hemoglobin 11.9 g/dL (11.5-15.4)
[2021-11-10 12:07] LABS: Basophils % 0.2 %; Eosinophils % 0.2 %; Hematocrit 38.4 % (35.3-44.9); Immature Granulocytes % 0.8 % (0-4); Immature Platelets 6.4 % (1.1-6.1); Lymphocytes # 0.3 K/mcL (0.6-4.6); Lymphocytes % 2.4 %; Mean Corpuscular Hemoglobin 30.1 pg (28.0-33.3); Mean Corpuscular Volume 97.2 fL (83.0-100.0); Mean Platelet Volume 11.8 fL (9.4-12.4); Monocytes # 0.3 K/mcL (0.0-1.3); Monocytes % 2.7 %; Nucleated Red Blood Cells 0.2 /100 WBC (0); Red Blood Count 3.95 M/mcL (3.82-4.97); Segmented Neutrophils % 93.7 %; White Blood Count 11.9 K/mcL (4.3-11.1)
[2021-11-10 12:14] LABS: BUN/Creatinine Ratio 34 (6-26); Blood Urea Nitrogen 33 mg/dL (8-23); Calcium 7.7 mg/dL (8.6-10.3); Carbon Dioxide 24 mEq/L (23-29); Chloride 108 mEq/L (98-107); Glucose 112 mg/dL (70-105); Osmolality,Calculated 292 (280-300); Potassium 5.5 mEq/L (3.5-5.1); Sodium 137 mEq/L (136-145); eGFR For African Americans > 60 (> 60); eGFR For Non-African Americans 56 (> 60)
[2021-11-10 12:33] LABS: Neutrophils # 11.2 K/mcL (1.6-8.9); Platelet Count 97 K/mcL (140-400)
[2021-11-11] MEDS: Insulin LISPRO 300 UNITS/3 ML VIAL SUBQ SCH ×4 (00:19→17:59)
[2021-11-11] MEDS: methylPREDNISolone 125 MG/2 ML VIAL IVP SCH ×4 (00:19→17:58)
[2021-11-11] MEDS: Acetaminophen 325 MG TABLET PO PRN (01:03)
[2021-11-11 02:59] LABS: Basophils % 0.1 %; Eosinophils % 0.1 %; Hematocrit 34.6 % (35.3-44.9); Hemoglobin 11.1 g/dL (11.5-15.4); Immature Granulocytes % 1.2 % (0-4); Lymphocytes # 0.4 K/mcL (0.6-4.6); Lymphocytes % 2.5 %; Mean Corpuscular HGB Conc 32.1 g/dL (31.6-35.5); Mean Corpuscular Hemoglobin 30.5 pg (28.0-33.3); Mean Corpuscular Volume 95.1 fL (83.0-100.0); Monocytes # 0.6 K/mcL (0.0-1.3); Monocytes % 3.4 %; Neutrophils # 15.7 K/mcL (1.6-8.9); Platelet Count 121 K/mcL (140-400); Red Blood Count 3.64 M/mcL (3.82-4.97); Segmented Neutrophils % 92.7 %; White Blood Count 16.9 K/mcL (4.3-11.1)
[2021-11-11 03:17] LABS: BUN/Creatinine Ratio 40 (6-26); Blood Urea Nitrogen 40 mg/dL (8-23); Calcium 7.5 mg/dL (8.6-10.3); Carbon Dioxide 22 mEq/L (23-29); Chloride 110 mEq/L (98-107); Glucose 94 mg/dL (70-105); Osmolality,Calculated 296 (280-300); Potassium 4.9 mEq/L (3.5-5.1); Sodium 138 mEq/L (136-145); eGFR For African Americans > 60 (> 60); eGFR For Non-African Americans 53 (> 60)
[2021-11-11] MEDS: Isosorbide MONOnitrate (24 HR) 30 MG TAB.ER.24H PO SCH (07:49)
[2021-11-11] MEDS: Aspirin Enteric Coated 81 MG Tablet PO SCH (08:06)
[2021-11-11] MEDS: levoFLOXacin 750 MG TABLET PO SCH (08:06)
[2021-11-11] MEDS: Cyanocobalamin (B-12) 1,000 MCG TABLET PO SCH (08:06)
[2021-11-11] MEDS: Thiamine (B-1) 100 MG TABLET PO SCH (08:06)
[2021-11-11] MEDS: Ranolazine 500 MG TAB.ER.12H PO SCH (08:07)
[2021-11-11 10:34] LABS: Magnesium 1.9 mg/dL (1.6-2.6); Phosphorous 3.3 mg/dL (2.7-4.5)
[2021-11-11] MEDS ORDERED: E-Z-HD (BARIUM SULF) SUSPENSION PO ONE (10:46)
[2021-11-11] MEDS ORDERED: E-Z-PAQUE (BARIUM SULF) SUSP 1 BOTTLE PO ONE (10:46)
[2021-11-11] MEDS ORDERED: 0.9 % Sodium Chloride 500 ML IVC ONE (15:47)
[2021-11-11] MEDS: Pantoprazole 40 MG VIAL IVP SCH (17:57)
[2021-11-11] MEDS: *HR* Heparin 5,000 UNIT/ML VIAL SQ SCH (17:57)
[2021-11-12] MEDS: Insulin LISPRO 300 UNITS/3 ML VIAL SUBQ SCH ×4 (00:15→16:40)
[2021-11-12] MEDS: methylPREDNISolone 125 MG/2 ML VIAL IVP SCH ×2 (00:47→04:34)
[2021-11-12] MEDS ORDERED: Acetaminophen IV 500 MG/50 ML BAG IVPB ONE (04:09)
[2021-11-12] MEDS: Pantoprazole 40 MG VIAL IVP SCH ×2 (04:33→17:55)
[2021-11-12] MEDS: *HR* Heparin 5,000 UNIT/ML VIAL SQ SCH ×2 (04:34→17:39)
[2021-11-12 05:45] LABS: Immature Granulocytes % 0.8 % (0-4); Monocytes % 2.6 %; Red Blood Count 3.79 M/mcL (3.82-4.97)
[2021-11-12 05:47] LABS: Basophils % 0.1 %; Hematocrit 36.3 % (35.3-44.9); Hemoglobin 11.2 g/dL (11.5-15.4); Immature Platelets 4.2 % (1.1-6.1); Lymphocytes # 0.2 K/mcL (0.6-4.6); Lymphocytes % 1.7 %; Mean Corpuscular HGB Conc 30.9 g/dL (31.6-35.5); Mean Corpuscular Hemoglobin 29.6 pg (28.0-33.3); Mean Corpuscular Volume 95.8 fL (83.0-100.0); Monocytes # 0.3 K/mcL (0.0-1.3); Neutrophils # 11.2 K/mcL (1.6-8.9); Platelet Count 104 K/mcL (140-400); Red Cell Distribution Width 16.7 % (11.5-14.5); Segmented Neutrophils % 94.8 %; White Blood Count 11.8 K/mcL (4.3-11.1)
[2021-11-12 06:03] LABS: BUN/Creatinine Ratio 46 (6-26); Blood Urea Nitrogen 47 mg/dL (8-23); Calcium 7.4 mg/dL (8.6-10.3); Carbon Dioxide 24 mEq/L (23-29); Chloride 110 mEq/L (98-107); Glucose 99 mg/dL (70-105); Magnesium 1.9 mg/dL (1.6-2.6); Osmolality,Calculated 306 (280-300); Phosphorous 3.4 mg/dL (2.7-4.5); Potassium 4.3 mEq/L (3.5-5.1); Sodium 142 mEq/L (136-145); eGFR For African Americans > 60 (> 60); eGFR For Non-African Americans 52 (> 60)
[2021-11-12] MEDS: Aspirin Enteric Coated 81 MG Tablet PO SCH (09:11)
[2021-11-12] MEDS: Thiamine (B-1) 100 MG TABLET PO SCH (09:11)
[2021-11-12] MEDS: Ranolazine 500 MG TAB.ER.12H PO SCH (09:11)
[2021-11-12] MEDS: Cyanocobalamin (B-12) 1,000 MCG TABLET PO SCH (09:11)
[2021-11-12] MEDS: Isosorbide MONOnitrate (24 HR) 30 MG TAB.ER.24H PO SCH (09:11)
[2021-11-12] MEDS ORDERED: Morphine Sulfate 2 MG/ML SYRINGE IVP ONE ×3 (09:25→17:02)
[2021-11-12] MEDS ORDERED: *HR* LORazepam 2 MG/ML VIAL IVP ONE ×2 (09:31→17:13)
[2021-11-12] MEDS: D5% in Water 1,000 ML IVC SCH (13:10)
[2021-11-12] MEDS ORDERED: Haloperidol Lactate 5 MG/ML VIAL IVP ONE ×2 (15:51→16:04)
[2021-11-12 16:09] LABS: ABG Base Excess -1 mEq/L (-2 to 3); ABG HCO3 23 mEq/L (21-27); ABG Oxygen Saturation 94 % (95-98); ABG PCO2 35 mmHg (35-45); ABG PH 7.43 pH Units (7.32-7.45); ABG PO2 69 mmHg (85-104); ABG TCO2 24 mEq/L (20-26)
[2021-11-12] MEDS ORDERED: Isovue-370 500 ML BOTTLE IVP ONE (16:55)
[2021-11-13] MEDS: D5% in Water 1,000 ML IVC SCH ×2 (01:27→13:29)
[2021-11-13] MEDS: Insulin LISPRO 300 UNITS/3 ML VIAL SUBQ SCH ×4 (01:27→15:53)
[2021-11-13] MEDS: Pantoprazole 40 MG VIAL IVP SCH ×2 (04:47→15:53)
[2021-11-13] MEDS: *HR* Heparin 5,000 UNIT/ML VIAL SQ SCH (04:49)
[2021-11-13 05:06] LABS: Mean Corpuscular Volume 96.6 fL (83.0-100.0); Mean Platelet Volume 11.2 fL (9.4-12.4)
[2021-11-13 05:08] LABS: Basophils % 0.1 %; Eosinophils % 0.5 %; Hematocrit 34.1 % (35.3-44.9); Hemoglobin 10.4 g/dL (11.5-15.4); Immature Granulocytes % 0.7 % (0-4); Lymphocytes # 0.2 K/mcL (0.6-4.6); Lymphocytes % 2.3 %; Mean Corpuscular HGB Conc 30.5 g/dL (31.6-35.5); Mean Corpuscular Hemoglobin 29.5 pg (28.0-33.3); Monocytes # 0.3 K/mcL (0.0-1.3); Neutrophils # 6.9 K/mcL (1.6-8.9); Red Blood Count 3.53 M/mcL (3.82-4.97); Red Cell Distribution Width 16.2 % (11.5-14.5); Segmented Neutrophils % 92.4 %; White Blood Count 7.5 K/mcL (4.3-11.1)
[2021-11-13 05:25] LABS: BUN/Creatinine Ratio 47 (6-26); Blood Urea Nitrogen 40 mg/dL (8-23); Carbon Dioxide 25 mEq/L (23-29); Chloride 108 mEq/L (98-107); Glucose 134 mg/dL (70-105); Magnesium 1.8 mg/dL (1.6-2.6); Osmolality,Calculated 298 (280-300); Phosphorous 2.7 mg/dL (2.7-4.5); Sodium 138 mEq/L (136-145); eGFR For African Americans > 60 (> 60); eGFR For Non-African Americans > 60 (> 60)
[2021-11-13] MEDS ORDERED: Acetaminophen IV 1,000 MG/100 ML BAG IVPB ONE (05:33)
[2021-11-13 05:50] LABS: Platelet Count 60 K/mcL (140-400)
[2021-11-13 05:51] LABS: Platelet Estimate Decreased (Normal)
[2021-11-13] MEDS: Isosorbide MONOnitrate (24 HR) 30 MG TAB.ER.24H PO SCH (07:58)
[2021-11-13] MEDS: levoFLOXacin 750 MG TABLET PO SCH (07:58)
[2021-11-13] MEDS: Aspirin Enteric Coated 81 MG Tablet PO SCH (07:58)
[2021-11-13] MEDS: Cyanocobalamin (B-12) 1,000 MCG TABLET PO SCH (07:59)
[2021-11-13] MEDS: Ranolazine 500 MG TAB.ER.12H PO SCH (07:59)
[2021-11-13] MEDS: Thiamine (B-1) 100 MG TABLET PO SCH (07:59)
[2021-11-13] MEDS ORDERED: predniSONE 20 MG TABLET PO SCH (09:00)
[2021-11-13] MEDS ORDERED: *HR* HYDROmorphone (PF) 1 MG/ML SYRINGE IVP ONE (09:48)
[2021-11-13 10:34] LABS: Bilirubin,Urine Negative (Negative); Blood,Urine Negative (Negative); Clarity,Urine Clear (Clear); Color,Urine Yellow (Yellow); Glucose,Urine (UA) Normal (Normal); Ketones,Urine Negative (Negative); Leukocyte Esterase,Urine Negative (Negative); Nitrite,Urine Negative (Negative); Protein,Urine Trace mg/dL (Neg-Trace); Specific Gravity,Urine > 1.030 (1.010-1.025); Urobilinogen,Urine Normal (Normal)
[2021-11-13] MEDS: *HR* LORazepam 2 MG/ML VIAL IVP PRN (15:40)
[2021-11-13] MEDS: *HR* HYDROmorphone (PF) 1 MG/ML SYRINGE IVP PRN ×2 (18:33→21:04)
[2021-11-14] MEDS: *HR* LORazepam 2 MG/ML VIAL IVP PRN ×3 (03:02→22:28)
[2021-11-14] MEDS: *HR* HYDROmorphone (PF) 1 MG/ML SYRINGE IVP PRN ×3 (03:03→19:23)
[2021-11-15] MEDS: *HR* HYDROmorphone (PF) 1 MG/ML SYRINGE IVP PRN ×7 (01:21→23:32)
[2021-11-15] MEDS: *HR* LORazepam 2 MG/ML VIAL IVP PRN ×3 (06:17→20:32)
[2021-11-15] MEDS: Haloperidol Lactate 5 MG/ML VIAL IVP PRN (19:14)
[2021-11-16] MEDS: Haloperidol Lactate 5 MG/ML VIAL IVP PRN ×6 (01:04→21:13)
[2021-11-16] MEDS: *HR* HYDROmorphone (PF) 1 MG/ML SYRINGE IVP PRN ×12 (05:49→23:31)
[2021-11-16] MEDS: *HR* LORazepam 2 MG/ML VIAL IVP PRN ×3 (06:11→17:56)
[2021-11-16] MEDS ORDERED: Acetaminophen 325 MG RECTAL SUPP RC PRN (09:52)
[2021-11-16] MEDS: Lacri-Lube 3.5 GM TUBE BOTH EYES SCH ×2 (10:48→19:42)
[2021-11-17] MEDS: *HR* HYDROmorphone (PF) 1 MG/ML SYRINGE IVP PRN ×14 (01:55→23:43)
[2021-11-17] MEDS: *HR* LORazepam 2 MG/ML VIAL IVP PRN ×3 (07:38→20:23)
[2021-11-17] MEDS: Lacri-Lube 3.5 GM TUBE BOTH EYES SCH ×2 (07:39→20:29)
[2021-11-17] MEDS: Haloperidol Lactate 5 MG/ML VIAL IVP PRN ×4 (10:00→23:44)
[2021-11-18] MEDS: *HR* HYDROmorphone (PF) 1 MG/ML SYRINGE IVP PRN ×10 (02:44→22:04)
[2021-11-18] MEDS: *HR* LORazepam 2 MG/ML VIAL IVP PRN ×3 (02:45→15:55)
[2021-11-18] MEDS: Haloperidol Lactate 5 MG/ML VIAL IVP PRN ×4 (06:32→22:03)
[2021-11-18 07:13] VITALS: BP 102/70; PULSE 80; TEMP 95.8; O2SAT 83
[2021-11-18] MEDS: Lacri-Lube 3.5 GM TUBE BOTH EYES SCH ×2 (07:55→22:06)
[2021-11-19] MEDS: *HR* HYDROmorphone (PF) 1 MG/ML SYRINGE IVP PRN ×8 (00:47→12:56)
[2021-11-19] MEDS: Haloperidol Lactate 5 MG/ML VIAL IVP PRN ×5 (00:48→12:56)
[2021-11-19] MEDS: Lacri-Lube 3.5 GM TUBE BOTH EYES SCH (08:52)
[2021-11-19] MEDS: *HR* LORazepam 2 MG/ML VIAL IVP PRN (11:29)
== END 2021-11-19 14:05 | disposition expired | DRG 871 ==
LOC: 2NENU 16:27 → EMEROOARM 16:27 → SUATTDRO 20:45 → 2NENU 22:40 → 2ANU 11-06 19:47
PROVIDERS: ADMIT Student in an Organized Health Care Education/Training Program; ATTEND Hospitalist